=== PATIENT | female | born 1995 | race Hispanic/Latino ===

== ENCOUNTER 2016-04-22 19:25 | Emergency (ER) | payer BC, SELFPAY ==
[2016-04-22] MEDS ORDERED: Ketorolac Tromethamine 60 MG/2 ML VIAL ONE (20:05)
[2016-04-22] MEDS ORDERED: Cyclobenzaprine 10 MG TAB ONE (20:05)
[2016-04-22 20:31] LABS: Bilirubin Negative (Negative); Blood, Urine Trace (Negative); Glucose, Urine (Dipstick) Negative (Negative); Ketone, Urine Negative (Negative); Nitrite Negative (Negative); Protein, Urine (Dipstick) Negative (Neg-Trace)
[2016-04-22 20:39] LABS: Bacteria/HPF Rare-Few HPF (None Seen); RBC/HPF 0-3 HPF (0-3); Squamous Epithelial 0-3 HPF (0-3); WBC/HPF 0-3 HPF (0-3)
--- NOTE | 2016-04-22 21:53 | ERRECORD ---
[facility] EMERGENCY RECORD HPI BACK (19:57 WMEI) CHIEF COMPLAINT: Denies injury, to the upper back, Patient presents for evaluation of pain, Patient presents for evaluation of tenderness. HISTORIAN: History provided by patient, started with mid upper back pain for 2 days ascending to neck and head denies fever orinjury admits to increase stres. MECHANISM OF INJURY: No apparent mechanism of injury. LOCATION: Symptoms are localized to the back, left upper thoracic, right upper thoracic. QUALITY: Pain is dull in nature. TIME COURSE: Gradual onset of symptoms. ASSOCIATED WITH: No associated dysuria, No associated fever, No associated problems with urination. EXACERBATED BY: Patient's condition exacerbated by extension, Patient's condition exacerbated by flexion, Patient's condition exacerbated by movement, Patient's condition exacerbated by rotation. RELIEVED BY: Patient's condition relieved by nothing. ROS (19:59 WMEI) CONSTITUTIONAL: Historian denies fever. EYES: Historian denies eye pain, denies eye discharge. ENT: Historian denies rhinorrhea, denies sore throat. CARDIOVASCULAR: Historian denies chest pain, no radiation. RESPIRATORY: Historian denies cough, denies shortness of breath. GI: Historian denies abdominal pain, denies nausea, denies vomiting. GENITOURINARY FEMALE: Historian denies dysuria. MUSCULOSKELETAL: Historian denies back pain, denies injury. SKIN: Historian denies skin changes, denies skin lesions. NEUROLOGIC: Historian denies confusion, denies dizziness, denies focal weakness, denies mental status changes. PSYCHIATRIC: Historian denies alcohol abuse, denies drug abuse. PAST MEDICAL HISTORY (19:36 BMAD) MEDICAL HISTORY: Flu vaccine not up to date, Tetanus immunization up to date, Pneumococcal vaccine not up to date, polycystic ovarian syndrome. FEMALE SURGICAL HISTORY: Patient has no surgical history.gallbladder removed 2016. PSYCHIATRIC HISTORY: Psychiatric history includes, depression. SOCIAL HISTORY: Patient denies alcohol use, Patient denies drug use, Patient has no smoking history, Former Cocaine use. KNOWN ALLERGIES No Known Drug Allergies CURRENT MEDICATIONS (19:34 BMAD) None &a-1R&a+25V*p+0X*z4052R*c202B*c15G*c2P*p-0X&a-25V&a+1R Name: Laurence Vann: 1995 F21 MedRec: [id number] AcctNum: [id number] Prepared: Zaida Apr 23, 2016 06:09 by Interface Page 1 of 3 pMD [facility] EMERGENCY RECORD VITAL SIGNS VITAL SIGNS: BP: 136/76, Pulse: 86, Resp: 16, Temp: 97.8 (Oral), Pain: 7, O2 sat: 99 on Room Air, Time: 04/22/2016 19:29. (19:29 BMAD) BP: 129/68, Pulse: 95, Resp: 18, Temp: 98.3, Pain: 7, O2 sat: 99 on RA, Time: 04/22/2016 20:56. (20:56 KSPL) PHYSICAL EXAM (20:00 WMEI) CONSTITUTIONAL: Vital Signs Reviewed, Patient afebrile, Patient appears non toxic, Patient alert and oriented to person, place and time. HEAD: No contusions, normocephalic. EYES: Conjunctiva normal, Sclera normal. ENT: Ear exam normal, Nose exam normal, Pharynx exam normal. NECK: Neck exam included findings of, range of motion limited by pain, Trachea midline, full ext/flex if done passively and slowly. RESPIRATORY CHEST: Breath sounds clear, Chest exam included findings of chest movement symmetrical. CARDIOVASCULAR: Cardiovascular exam included findings of heart rate regular rate and rhythm, Heart sounds normal. ABDOMEN FEMALE: Abdominal exam included findings of abdomen nontender. UPPER EXTREMITY: Upper extremity exam included findings of inspection normal, Range of motion normal, Motor strength normal. LOWER EXTREMITY: Lower extremity exam included findings of inspection normal, Range of motion normal, Motor strength normal. NEURO: [place] coma scale 15, Speech normal, Gait normal, Memory normal. SKIN: Skin exam included findings of skin warm, dry, and normal in color. LYMPHATIC: Lymphatic exam normal. PSYCHIATRIC: Psychiatric exam included findings of patient oriented to person place and time, Normal affect, Judgment normal, Insight normal. MEDICATION ADMINISTRATION SUMMARY Drug Name: Flexeril, Dose Ordered: 10 mg, Route: Oral, Status: Given, Time: 20:22 04/22/2016, Drug Name: Toradol intramuscular, Dose Ordered: 60 mg, Route: Intramuscular, Status: Given, Time: 20:21 04/22/2016, Detailed record available in Medication Service section. PROBLEM LIST No recorded problems DIAGNOSIS (20:45 WMEI) FINAL: PRIMARY: thoracic sprain. &a-1R&a+25V*p+0X*w8450O*c202B*c15G*c2P*p-0X&a-25V&a+1R Name: Laurence Vann : 1995 F21 MedRec: [id number] AcctNum: [id number] Prepared: Zaida Apr 23, 2016 06:09 by Interface Page 2 of 3 pMD [facility] EMERGENCY RECORD PRESCRIPTION (20:46 WMEI) traMADol: TABLET : 50 mg : ORAL : Quantity: 1 Unit: tab(s) Route: ORAL Schedule: every 8 hours PRN Dispense: 21 Unit: tab(s) May substitute. Refills: No Refills POTENTIAL SEVERE INTERACTION: Flexeril (cyclobenzaprine HCl) Override Rationale: Reviewed with patient, tolerated before. NOTES: No refills. DISPOSITION PATIENT: Disposition Type: Discharge, Disposition: *Discharge Home. (20:45 WMEI) Patient left the department. (21:00 KSPL) Sawyer: BMAD=ART Hamilton, Gavino KSPL=ART Euceda, Asya WMEI=DO Ferrer William &a-1R&a+25V*p+0X*f0588T*c202B*c15G*c2P*p-0X&a-25V&a+1R Name: Laurence Vann : 1995 F21 MedRec: [id number] AcctNum: [id number] Prepared: Zaida Apr 23, 2016 06:09 by Interface Page 3 of 3 pMD MTDD
--- NOTE | 2016-04-22 21:57 | PICIS ---
[facility] EMERGENCY RECORD TRIAGE (19:34 BMAD) TRIAGE NOTES: pt stating since last night she has been experiencing back pain throughout spine which is causing her to have a pulsating headache. (19:34 BMAD) PATIENT: NAME: Laurence Vann, AGE: 21, GENDER: female, : Sun1995, TIME OF GREET: Sat Apr 22, 2016 19:26, PREFERRED LANGUAGE: Greek, ETHNICITY: or , ECODE BILLING MAP: [facility], SSN: [id number], Zip Code: [address], KG WEIGHT: 68.04 (est.), PHONE: , , , PERSON ID: [id number], PCP: RICKEY. (19:34 BMAD) PAYMENT: [employer] [place]. (19:35) COMPLAINT: Back Pain/Headache. (19:34 BMAD) ADMISSION: URGENCY: 4 Non Urgent, ADMISSION SOURCE: Home, TRANSPORT: Walk-in, BED: ER -05. (19:34 BMAD) IMMUNIZATIONS: Flu vaccine not up to date, Tetanus immunization up to date, Pneumococcal vaccine not up to date. (19:36 BMAD) SIRS SCORING: Heart Rate 55-109 (0), Temp range 96.8-101.1 (0), respiratory rate 12-24 (0), Mental Status altered: no (0), Infection or Suspected Infection: No. (19:36 BMAD) TRIAGE SCREENING: Patient denies suicidal ideation, Patient denies presence of domestic violence. (19:36 BMAD) LMP: Last menstrual period: 04/15/2016. (19:36 BMAD) PROVIDERS: TRIAGE NURSE: Gavino Hamilton RN. (19:34 BMAD) VITAL SIGNS: BP 136/76, Pulse 86, Resp 16, Temp 97.8, (Oral), Pain 7, O2 Sat 99, on Room Air, Time 04/22/2016 19:29. (19:29 BMAD) PREVIOUS VISIT ALLERGIES: No Known Drug Allergies. (19:34 BMAD) No Known Drug Allergies. (19:36 BMAD) KNOWN ALLERGIES No Known Drug Allergies CURRENT MEDICATIONS (19:34 BMAD) None VITAL SIGNS VITAL SIGNS: BP: 136/76, Pulse: 86, Resp: 16, Temp: 97.8 (Oral), Pain: 7, O2 sat: 99 on Room Air, Time: 04/22/2016 19:29. (19:29 BMAD) BP: 129/68, Pulse: 95, Resp: 18, Temp: 98.3, Pain: 7, O2 sat: 99 on RA, Time: 04/22/2016 20:56. (20:56 KSPL) NURSING ASSESSMENT: BACK (19:38 BMAD) CONSTITUTIONAL: Complex assessment performed, Patient arrives ambulatory, Gait steady, History obtained from patient, Patient appears, anxious, Patient cooperative, Patient alert, Oriented to person, place and time, Skin warm, Skin dry, Skin normal in color, Mucous membranes pink, Mucous membranes moist, Patient is well-groomed, Patient complains of back pain/headache, see triage note. &a-1R&a+25V*p+0X*z6564X*c202B*c15G*c2P*p-0X&a-25V&a+1R Name: Laurence Vann : 1995 F21 MedRec: [id number] AcctNum: [id number] Prepared: Zaida Apr 23, 2016 06:15 by Interface Page 1 of 6 pMD [facility] EMERGENCY RECORD PAIN: miserable pain, nagging pain, to the entire back, frontal lobe, Onset of pain 2 pm, on a scale 0-10 patient rates pain as 7, Pain exacerbated by, ambulation, Pain relieved by, lying down. BACK: Back assessment findings include no complaints of tenderness, no paresthesias to extremities, no weakness to extremities, no incontinence of bowel or bladder, Right radial pulse +3(easily palpated, considered normal), Left radial pulse +3(easily palpated, considered normal). NECK: Neck assessment findings include trachea midline, no jugular vein distention noted, no lymphadenopathy, no tenderness, no pain with range of motion. NURSING PROCEDURE: DISCHARGE NOTE (20:56 KSPL) DISCHARGE: Patient discharged to home, ambulating without assistance, family driving, accompanied by other family member, Summary of Care printed/ provided, Patient requested and was provided an electronic copy of Discharge Instructions, Transition record given to patient, Discharge instructions given to patient, Simple or moderate discharge teaching performed, by Asya CORDOVA, Follow up with PCP, take meds as prescribed., Prescriptions given and instructions on side effects given, Name of prescription(s) given: Tramadol, Medication reconciliation form given, Above person(s) verbalized understanding of discharge instructions and follow-up care, Patient treated and evaluated by physician. BELONGINGS: Belongings and valuables with patient at time of discharge include:, Belongings remain with patient, Valuables remain with patient. SAFETY: Side rails up, Cart/Stretcher in lowest position, Call light within reach, Hospital ID band on, Friend(s) at bedside. VITAL SIGNS: BP: 129, / 68, Pulse: 95, Resp: 18, Temp: 98.3, Pain: 7, O2 sat: 99, on: RA. ORDER DETAILS Order Name: Urinalysis w/ Rflx Microscopic, Status: Active, Time: 20:02 04/22/2016, User: [employer], - Ordered for: DO Ferrer William, - Entered by: DO Ferrer William - Sat Apr 22, 2016 20:02, - Quantity: 1. MEDICATION ADMINISTRATION SUMMARY Drug Name: Flexeril, Dose Ordered: 10 mg, Route: Oral, Status: Given, Time: 20:22 04/22/2016, Drug Name: Toradol intramuscular, Dose Ordered: 60 mg, Route: Intramuscular, Status: Given, Time: 20:21 04/22/2016, Detailed record available in Medication Service section. &a-1R&a+25V*p+0X*e5115L*c202B*c15G*c2P*p-0X&a-25V&a+1R Name: Laurence Vann : 1995 F21 MedRec: [id number] AcctNum: [id number] Prepared: Zaida Apr 23, 2016 06:15 by Interface Page 2 of 6 pMD [facility] EMERGENCY RECORD MEDICATION SERVICE Flexeril: Order: Flexeril (cyclobenzaprine HCl) - Dose: 10 mg : Oral Schedule: Now Ordered by: Babatunde Ferrer DO Entered by: Babatunde Ferrer DO Sat Apr 22, 2016 19:56 , Acknowledged by: Gavino Hamilton RN Sat Apr 22, 2016 20:02 Documented as given by: Asya Euceda RN Sat Apr 22, 2016 20:22 Patient, Medication, Dose, Route and Time verified prior to administration. Amount given: 10 mg, Site: Medication administered P.O., Patient appears Awake and alert- acceptable, Correct patient, time, route, dose and medication confirmed prior to administration, Patient advised of actions and side-effects prior to administration, Allergies confirmed and medications reviewed prior to administration, Patient in position of comfort, Side rails up, Cart in lowest position, Call light in reach. : Follow Up : Response assessment performed, No signs or symptoms of allergic reaction noted, Advised not to ambulate without assistance, Patient in position of comfort, Side rails up, Cart in lowest position, Friend at bedside, Call light in reach, pt states pain is not any better. still rating pain at a 7. ERMD notified. (20:45 KSPL) Toradol intramuscular: Order: Toradol intramuscular (ketorolac tromethamine) - Dose: 60 mg : Intramuscular Schedule: Now Ordered by: Babatunde Ferrer DO Entered by: Babatunde Ferrer DO Sat Apr 22, 2016 19:56 , Acknowledged by: Gavino Hamilton RN Sat Apr 22, 2016 20:02 Documented as given by: Asya Euceda RN Sat Apr 22, 2016 20:21 Patient, Medication, Dose, Route and Time verified prior to administration. IM medication, Amount given: 60 mg, Medication administered to left hip, Patient appears Awake and alert- acceptable, Correct patient, time, route, dose and medication confirmed prior to administration, Patient advised of actions and side-effects prior to administration, Allergies confirmed and medications reviewed prior to administration, Patient in position of comfort, Side rails up, Cart in lowest position, Call light in reach. : Follow Up : Response assessment performed, No signs or symptoms of allergic reaction noted, Advised not to ambulate without assistance, Patient in position of comfort, Side rails up, Cart in lowest position, Friend at bedside, Call light in reach, pt still rating pain at a 7 out of 10. ERMD notified. (20:45 KSPL) HPI BACK (19:57 WMEI) CHIEF COMPLAINT: Denies injury, to the upper back, Patient presents for evaluation of pain, Patient presents for evaluation of tenderness. HISTORIAN: History provided by patient, started with mid upper back pain for 2 days &a-1R&a+25V*p+0X*y0863O*c202B*c15G*c2P*p-0X&a-25V&a+1R Name: Laurence Vann : 1995 F21 MedRec: [id number] AcctNum: [id number] Prepared: Zaida Apr 23, 2016 06:15 by Interface Page 3 of 6 pMD [facility] EMERGENCY RECORD ascending to neck and head denies fever orinjury admits to increase stres. MECHANISM OF INJURY: No apparent mechanism of injury. LOCATION: Symptoms are localized to the back, left upper thoracic, right upper thoracic. QUALITY: Pain is dull in nature. TIME COURSE: Gradual onset of symptoms. ASSOCIATED WITH: No associated dysuria, No associated fever, No associated problems with urination. EXACERBATED BY: Patient's condition exacerbated by extension, Patient's condition exacerbated by flexion, Patient's condition exacerbated by movement, Patient's condition exacerbated by rotation. RELIEVED BY: Patient's condition relieved by nothing. ROS (19:59 WMEI) CONSTITUTIONAL: Historian denies fever. EYES: Historian denies eye pain, denies eye discharge. ENT: Historian denies rhinorrhea, denies sore throat. CARDIOVASCULAR: Historian denies chest pain, no radiation. RESPIRATORY: Historian denies cough, denies shortness of breath. GI: Historian denies abdominal pain, denies nausea, denies vomiting. GENITOURINARY FEMALE: Historian denies dysuria. MUSCULOSKELETAL: Historian denies back pain, denies injury. SKIN: Historian denies skin changes, denies skin lesions. NEUROLOGIC: Historian denies confusion, denies dizziness, denies focal weakness, denies mental status changes. PSYCHIATRIC: Historian denies alcohol abuse, denies drug abuse. PAST MEDICAL HISTORY (19:36 BMAD) MEDICAL HISTORY: Flu vaccine not up to date, Tetanus immunization up to date, Pneumococcal vaccine not up to date, polycystic ovarian syndrome. FEMALE SURGICAL HISTORY: Patient has no surgical history.gallbladder removed 2015. PSYCHIATRIC HISTORY: Psychiatric history includes, depression. SOCIAL HISTORY: Patient denies alcohol use, Patient denies drug use, Patient has no smoking history, Former Cocaine use. PHYSICAL EXAM (20:00 WMEI) CONSTITUTIONAL: Vital Signs Reviewed, Patient afebrile, Patient appears non toxic, Patient alert and oriented to person, place and time. HEAD: No contusions, normocephalic. EYES: Conjunctiva normal, Sclera normal. ENT: Ear exam normal, Nose exam normal, Pharynx exam normal. NECK: Neck exam included findings of, range of motion limited by pain, Trachea midline, full ext/flex if done passively and slowly. &a-1R&a+25V*p+0X*y3181C*c202B*c15G*c2P*p-0X&a-25V&a+1R Name: Laurence Vann : 1995 F21 MedRec: [id number] AcctNum: [id number] Prepared: Zaida Apr 23, 2016 06:15 by Interface Page 4 of 6 pMD [facility] EMERGENCY RECORD RESPIRATORY CHEST: Breath sounds clear, Chest exam included findings of chest movement symmetrical. CARDIOVASCULAR: Cardiovascular exam included findings of heart rate regular rate and rhythm, Heart sounds normal. ABDOMEN FEMALE: Abdominal exam included findings of abdomen nontender. UPPER EXTREMITY: Upper extremity exam included findings of inspection normal, Range of motion normal, Motor strength normal. LOWER EXTREMITY: Lower extremity exam included findings of inspection normal, Range of motion normal, Motor strength normal. NEURO: [place] coma scale 15, Speech normal, Gait normal, Memory normal. SKIN: Skin exam included findings of skin warm, dry, and normal in color. LYMPHATIC: Lymphatic exam normal. PSYCHIATRIC: Psychiatric exam included findings of patient oriented to person place and time, Normal affect, Judgment normal, Insight normal. EVENTS TRANSFER: Triage to Emergency Emergency Room -05. (Sat Apr 22, 2016 19:34 BMAD) Removed from Emergency Emergency Room -05. (21:00 KSPL) PROBLEM LIST No recorded problems DIAGNOSIS (20:45 WMEI) FINAL: PRIMARY: thoracic sprain. DISPOSITION PATIENT: Disposition Type: Discharge, Disposition: *Discharge Home. (20:45 WMEI) Patient left the department. (21:00 KSPL) INSTRUCTION (20:47 WMEI) DISCHARGE: STRAIN THORACIC SPINE. SPECIAL: Follow-up with your primary physician as needed. PRESCRIPTION (20:46 WMEI) traMADol: TABLET : 50 mg : ORAL : Quantity: 1 Unit: tab(s) Route: ORAL Schedule: every 8 hours PRN Dispense: 21 Unit: tab(s) May substitute. Refills: No Refills POTENTIAL SEVERE INTERACTION: Flexeril (cyclobenzaprine HCl) Override Rationale: Reviewed with patient, tolerated before. NOTES: No refills. IMAGING (21:06 KSPL) *DISCHARGE INSTRUCTIONS RECEIPT: Image captured from scanner. &a-1R&a+25V*p+0X*o9637U*c202B*c15G*c2P*p-0X&a-25V&a+1R Name: Vann Laurence A : 1995 F21 MedRec: [id number] AcctNum: [id number] Prepared: Zaida Apr 23, 2016 06:15 by Interface Page 5 of 6 pMD [facility] EMERGENCY RECORD *SUPPLY CHARGE SHEET: Image captured from scanner. ADMIN (Zaida Apr 23, 2016 06:06 WMEI) DIGITAL SIGNATURE: DO Ferrer William. Sawyer: BMAD=ART Hamilton, Gavino KSPL=ART Euceda, Asya WMEI=DO Ferrer William &a-1R&a+25V*p+0X*v6400E*c202B*c15G*c2P*p-0X&a-25V&a+1R Name: Vann Laurence Dev : 1995 F21 MedRec: [id number] AcctNum: [id number] Prepared: Zaida Apr 23, 2016 06:15 by Interface Page 6 of 6 pMD MTDD
== END 2016-04-22 20:56 | disposition home or self-care (01) ==
LOC: BURERS 19:25
DX: S23.3XXA Sprain of ligaments of thoracic spine, initial encounter (principal); F32.9 Major depressive disorder, single episode, unspecified; X58.XXXA Exposure to other specified factors, initial encounter
CPT/HCPCS: 81003; 81015; 96372; J1885

== ENCOUNTER 2016-06-09 22:29 | Emergency (ER) | payer BC ==
[2016-06-09] MEDS ORDERED: Ketorolac Tromethamine 60 MG/2 ML VIAL ONE (22:45)
== END 2016-06-09 23:15 | disposition home or self-care (01) ==
LOC: BURERS 22:29
DX: M54.12 Radiculopathy, cervical region (principal); F32.9 Major depressive disorder, single episode, unspecified
CPT/HCPCS: 96372; J1885

== ENCOUNTER 2016-08-15 15:48 | Emergency (ER) | payer BC ==
[2016-08-15] MEDS ORDERED: Ondansetron ODT 4 MG TAB ONE (16:36)
--- NOTE | 2016-08-15 17:02 | CT ---
CT BRAIN WITHOUT CONTRAST 08/15/16 HISTORY: Fall, headache. FINDINGS: No evidence of acute infarct, hemorrhage, midline shift or abnormal extra-axial fluid collections se en. The ventricular size is normal and the basilar cisterns patent. The bony calvarium is intact. Th e visualized paranasal sinuses and mastoid air cells are well aerated. IMPRESSION: No CT evidence of acute intracranial process. POS: [facility]
== END 2016-08-15 16:50 | disposition home or self-care (01) ==
LOC: BURERS 15:48
DX: S06.9X1A Unspecified intracranial injury with loss of consciousness of 30 minutes or less, initial encounter (principal); S00.03XA Contusion of scalp, initial encounter; E28.2 Polycystic ovarian syndrome; F32.9 Major depressive disorder, single episode, unspecified; W22.8XXA Striking against or struck by other objects, initial encounter
CPT/HCPCS: 70450; Q0162

== ENCOUNTER 2021-10-27 06:57 | Outpatient (CLI) | payer BC | END 2021-10-27 06:58 | disposition home or self-care (01) | LOC: BURLABSP 06:57 | PROVIDERS: ATTEND Advanced Practice Midwife | DX: N97.9 Female infertility, unspecified (principal) | CPT/HCPCS: 36415; 84144 ==

== ENCOUNTER 2022-01-03 16:45 | Outpatient (CLI) | payer BC | END 2022-01-03 16:46 | disposition home or self-care (01) | LOC: BURLAB 16:45 | PROVIDERS: ATTEND Obstetrics & Gynecology | DX: Z33.1 Pregnant state, incidental (principal) | CPT/HCPCS: 36415; 84702 ==

== ENCOUNTER 2022-01-05 16:50 | Outpatient (CLI) | payer BC, MEDICAID | END 2022-01-05 16:51 | disposition home or self-care (01) | LOC: BURLAB 16:50 | PROVIDERS: ATTEND Obstetrics & Gynecology | DX: Z34.91 Encounter for supervision of normal pregnancy, unspecified, first trimester (principal) | CPT/HCPCS: 36415; 84702 ==